=== PATIENT | female | born 1955 ===

== ENCOUNTER → 2019-12-18 06:00 | Outpatient (CLI) | payer OTHER ==
[~2019-12-18 06:00] MED LIST: COZAAR25 MG PO; INDERAL LA120 MG PO; LASIX20 MG PO; PROTONIX20 MG PO
== END | disposition home or self-care (01) ==
LOC: EKG 06:00 → ADM 09:45 → EDSTATUS 12-23 09:45 → CIR.AMB 12-23 09:45
DX: N95.0 Postmenopausal bleeding (principal); N84.0 Polyp of corpus uteri